=== PATIENT | male | born 1985 | race Caucasian/White ===

== ENCOUNTER 2018-10-05 00:14 | Emergency (ER) | payer SELFPAY ==
[~2018-10-05] VITALS: Ht 160 cm; Wt 81.2 kg
[2018-10-05 00:24] VITALS: Ht 160 cm; Wt 81.2 kg
[2018-10-05 01:27] VITALS: BP 118/75
== END 2018-10-05 01:27 | disposition home or self-care (01) ==
LOC: ED 00:14
DX: S01.01XA Laceration without foreign body of scalp, initial encounter (principal); R03.0 Elevated blood-pressure reading, without diagnosis of hypertension; W01.190A Fall on same level from slipping, tripping and stumbling with subsequent striking against furniture, initial encounter; Y93.89 Activity, other specified; Y92.89 Other specified places as the place of occurrence of the external cause; Y99.8 Other external cause status
CPT/HCPCS: 90715